=== PATIENT | female | born 1975 | race Caucasian/White ===

== ENCOUNTER 2016-05-21 08:42 | Emergency (ER) | payer MEDICAID ==
[~2016-05-21] VITALS: Wt 72.5 kg
[2016-05-21] MEDS ORDERED: METF500T4 PO (09:40)
--- NOTE | 2016-05-21 09:50 | ERD ---
ER Documentation Chief Complaint Date/Time DATE: 05/21/16 TIME: 09:45 Chief Complaint pt here for medication refill on oral dm medications. HPI This 40-year-old female presents to the ER for refill on diabetic medications. She has not had them for a month. She is having no fevers, chills, pain causing nausea, vomiting. She is not established primary care doctor yet but knows that she used to be on metformin. ROS All systems reviewed and are negative except as per history of present illness. Medications Home Meds Active Scripts Metformin* (Glucophage*) 500 Mg Tab, 500 MG PO BID, #20 TAB Prov:VLADIMIR TOVAR DO 05/21/16 PMhx/Soc Medical and Surgical Hx: pt denies Medical Hx History of Surgery: Yes (ABD) Anesthesia Reaction: No Hx Miscellaneous Medical Probl: Yes (DIABETES ) Hx Alcohol Use: Yes Hx Substance Use: No Hx Tobacco Use: Yes Smoking Status: Never smoker Physical Exam Vitals Vital Signs Date Time Temp Pulse Resp B/P Pulse Ox O2 Delivery O2 Flow Rate FiO2 05/21/16 08:46 98.2 119 20 195/85 100 Physical Exam Const: [] No distress Eyes: Normal Conjunctiva ENT: Normal External Ears, Nose and Mouth. Neck: Full range of motion..~ No meningismus. Resp: Clear to auscultation bilaterally Cardio: Regular rate and rhythm, no murmurs Procedures/MDM Medication refill for metformin. As well as the patient had insurance and she says she did not have doesn't know how to get in. Had office registration who is an expert in this walker through the steps that she needs to provide the forms that she needs in order to obtain Medi-[employer]. She currently does not have symptoms and would definitely benefit from a stopped her primary care doctor giving her a list of local clinics that a low cost that she can begin primary care with and I explained the importance of monitoring her diabetes. Discharging with metformin 500 mg twice a day and per current term precautions the ER if she has any concerning symptoms. Departure Diagnosis: Primary Impression: Encounter for medication refill Additional Impression: Type 2 diabetes mellitus Condition: Stable Patient Instructions: DIABETES, General Info Referrals: COMMUNITY CLINICS YOU HAVE RECEIVED A MEDICAL SCREENING EXAM AND THE RESULTS INDICATE THAT YOU DO NOT HAVE A CONDITION THAT REQUIRES URGENT TREATMENT IN THE EMERGENCY DEPARTMENT. FURTHER EVALUATION AND TREATMENT OF YOUR CONDITION CAN WAIT UNTIL YOU ARE SEEN IN YOUR DOCTORS OFFICE WITHIN THE NEXT 1-2 DAYS. IT IS YOUR RESPONSIBILITY TO MAKE AN APPOINTMENT FOR FOLOW-UP CARE. IF YOU HAVE A PRIMARY DOCTOR --you should call your primary doctor and schedule an appointment IF YOU DO NOT HAVE A PRIMARY DOCTOR YOU CAN CALL OUR PHYSICIAN REFERRAL HOTLINE AT IF YOU CAN NOT AFFORD TO SEE A PHYSICIAN YOU CAN CHOSE FROM THE FOLLOWING [facility] [address] [facility] [address] [facility] [address] [facility] [address] [facility] [address] [facility]. [facility]. [address] Additional Instructions: Llame al doctor MAANA y tayo dm CHET PARA DENTRO DE 2-3 GARRETT.Dgale a la secretaria que nosotros le instruimos hacer esta chet.Avise o llame si olivier condicin se empeora antes de la chet. Regresa aqui si peor o no mejor. VLADIMIR TOVAR DO May 21, 2016 09:50
== END 2016-05-21 10:34 | disposition home or self-care (01) ==
LOC: E/R 08:42
DX: Z76.0 Encounter for issue of repeat prescription (principal); E11.9 Type 2 diabetes mellitus without complications; Z79.84 Long term (current) use of oral hypoglycemic drugs; Z87.891 Personal history of nicotine dependence
CPT/HCPCS: 99281